=== PATIENT | male | born 2000 | race Caucasian/White ===

== ENCOUNTER 2021-08-25 20:18 | Emergency (ER) | payer SELFPAY ==
[~2021-08-25] VITALS: Ht 167 cm; Wt 72.2 kg
--- OUTSIDE RECORDS SUMMARY | 2021-08-25 20:23 | XMS REPORT | Clinical Summary ---
Author Author [facility] Organization [facility] Address Unknown Phone Unavailable Care Team Providers Care Enterprise Sales Executive Name Role Phone PCP Unavailable Allergies Comments Active Allergy Reactions Severity Noted Date Penicillins 08/01/2014 Medications End Date Status Medication Sig Dispensed Refills Start Date Active albuterol (PROVENTIL Inhale two 2 g 0 08/12 HFA;VENTOLIN HFA) 90 puffs every 6 5 mcg/actuation inhaler (six) hours as needed (Dispense with aerochamber). 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 Vital Signs Reading Time Taken Comments Vital Sign 125/57 07/19/2020 3:00 AM CDT Blood Pressure 108 07/19/2020 3:00 AM CDT Pulse 36.7 C (98 F) 07/19/2020 3:00 AM CDT Temperature 20 07/19/2020 3:00 AM CDT Respiratory Rate 97% 07/19/2020 3:00 AM CDT Oxygen Saturation - - Inhaled Oxygen Concentration 61.2 kg (135 lb) 07/19/2020 1:01 AM CDT Weight 167.6 cm (5' 6") 07/19/2020 1:01 AM CDT Height 21.79 07/19/2020 1:01 AM CDT Body Mass Index Plan of Treatment Health Maintenance Due Date Last Done Comments Td/Tdap# 2001 Tobacco Cessation 2001 Counseling # Pneumococcal Vaccine: 2007 Pediatrics (0 to 5 Years) and At-Risk Patients (6 to 64 Years) (1 of 2 - PPSV23) HPV Vaccine (1 - Male 2012 2-dose series) COVID-19 Vaccine (1) 2013 Influenza Vaccine (#1) 2021 MCV4 Vaccine Aged Out No longer eligible based on patient's age to complete this topic Results Not on filefrom Last 3 Months Insurance Type Payer Benefit Subscriber ID Effective Phone Address Plan / Dates Group MEDICAID MANAGED CARE [facility] [id number] 2017-P [address] [facility] resent [address] [place] [id number] John Biswas Personal/F Self [address] [place] (Home) [place], [place] [address] LAURO BISWAS Personal/F Father 10/17/1977 [address] [place] (Home) [place], [place] [address] Advance Directives For more information, please contact: [phone] 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
--- OUTSIDE RECORDS SUMMARY | 2021-08-25 20:23 | XMS REPORT | Clinical Summary ---
Author Author [facility] Organization [facility] Address Unknown Phone Unavailable Care Team Providers Care Animal Behaviorist Name Role Phone No, Pcp INFORMATICS DEVELOPER PP Unavailable Allergies Not on File Medications Not on file Active Problems Not on file Social History Date Tobacco Use Types Packs/Day Years Used Never Assessed Sex Assigned at Date Recorded Not on file Plan of Treatment Not on file Results Not on filefrom Last 3 Months Insurance Type Payer Benefit Subscriber ID Effective Phone Address Plan / Dates Group PA MEDICAID [place] [id number] 2020 [facility] -Present 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
--- NOTE | 2021-08-25 23:44 | ED EENT ---
History of Present Illness General Chief Complaint: Oral/Throat Problems Stated Complaint: TROUBLE/PAINFUL SWALLOWING Nursing Triage Note: PT TO ER WITH C/O SORE THROAT X1 DAY. PT REPORTS HURTS WHEN HE SWALLOWS AND HIS SALIVA FEELS THICK. PT SWABBED FOR STREP. 0/10 PAIN SCALE RATING, NO SOA. Source: patient History of Present Illness Date Seen by Provider: Aug 25, 2021 Time Seen by Provider: 23:44 Initial Comments 21 yo male presenting with complaints of sore throat for 1 day. He was having low grade fever and pain with swallowing. He denies feeling light headed or dizzy. He had no cough, shortness of breath, nausea, vomiting, diarrhea. he was concerned he has strep throat so came to be checked. He has not drank much fluid during the day. Timing/Duration: abrupt, this morning Severity: severe Location: throat Prearrival Treatment: no prearrival treatment Associated Symptoms: No change in hearing, No cough, No drooling, No ear drainage, No facial pain/swelling, No fever, No malaise, No nasal congestion/drainage; poor fluid intake, poor solids intake; No sinus infection; sore throat; No tooth pain, No voice change Allergies and Home Medications Allergies Coded Allergies: Penicillins (Verified Allergy, Severe, Anaphylaxis, 08/26/21) amoxicillin (Verified Allergy, Severe, Shortness of Breath, 08/26/21) Patient Home Medication List Home Medication List Reviewed: Yes Clindamycin HCl (Clindamycin HCl) 300 Mg Capsule, 300 MG PO Q8H Prescribed by: NATE DAVIS on 08/26/21 0027 Review of Systems Review of Systems Constitutional: chills, fever, malaise Eyes: No Symptoms Reported Ears: No Symptoms Reported Nose: no symptoms reported Mouth: no symptoms reported Throat: pain, swelling; denies discharge; painful swallowing Respiratory: No cough, No short of breath Cardiovascular: no symptoms reported; No chest pain Gastrointestinal: No diarrhea, No nausea, No vomiting Musculoskeletal: no symptoms reported Skin: No rash Neurological: Denies Headache Past Kfwmbim-Lsqxys-Ncfyqn Hx Patient Social History Tobacco Use?: Yes Smoking Status: Light Tobacco Smoker Use of E-Cig and/or Vaping dev: No Substance use?: No Alcohol Use?: No Pt feels they are or have been: No Immunizations Up To Date First/Initial COVID19 Vaccinat: JUNE 13 COVID19 Vaccine Miscellaneous Machine 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 oz. 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, alert, oriented x 3 Skin: normal color, warm/dry; No rash Progress/Results/Core Measures Results/Orders Lab Results Laboratory Tests Test 08/25/21 21:39 Range/Units Group A Streptococcus Screen NEGATIVE NEGATIVE My Orders Orders - NATE DAVIS MD Rapid Strep A Screen (08/25/21 21:27) Ed Iv/Invasive Line Start (08/25/21 23:50) Ns Iv 1000 Ml (Sodium Chloride 0.9%) (08/25/21 23:50) Dexamethasone Injection (Decadron Inje (08/25/21 23:50) Clindamycin 600 Mg/50 Ml Ivpb (Cleocin P (08/26/21 00:05) Vital Signs/I&O 08/25/21 08/26/21 22:03 00:36 Temp 38.1 Pulse 116 100 Resp 16 16 B/P (MAP) 136/86 (103) 135/76 Pulse Ox 95 99 O2 Delivery Room Air Room Air Blood Pressure Mean: 103 Progress Progress Note : Progress Note Rapid strep was obtained and was negative. However with his low-grade fever and tachycardia as well as pharyngeal erythema with exudate will cover with antibiotics for possible strep throat. Give IV fluids for hydration. Give a single dose dose of Decadron 10 mg IV for throat swelling and pain. Counseled on follow-up and return precautions. Departure Impression Primary Impression: Pharyngitis Qualified Codes: J02.9 - Acute pharyngitis, unspecified Additional Impression: Dehydration Disposition: 01 HOME, SELF-CARE Condition: Stable Departure-Patient Inst. Decision time for Depature: 00:33 Referrals: NO,LOCAL PHYSICIAN (PCP) Primary Care Physician [facility] Patient Instructions: Sore Throat, Adult ED, Dehydration, Adult ED Add. Discharge Instructions: Take the antibiotics to treat for possible strep throat infection. Take a probiotic to help replace the good bacteria you need in your gut as the antibiotic will fight the infection in throat but also kill off the bacteria in your gut that help with digestion Push fluids and drink plenty of water and electrolyte drinks. Follow up with clinic if not improving within the next 3-4 days. you could follow up with [facility] clinic by calling [phone] and let them know you need to establish a primary care provider and follow up from ER All discharge instructions reviewed with patient and/or family. Voiced understanding. Scripts Clindamycin HCl (Clindamycin HCl) 300 Mg Capsule 300 MG PO Q8H for Pharyngitis for 10 Days, #30 CAP 0 Refills Prov: NATE DAVIS MD 08/26/21 Work/School Note: Work Release Form Date Seen in the Emergency Department: Aug 25, 2021 Return to Work: Aug 27, 2021 Restrictions: Return-No Fever (24hrs) NATE DAVIS MD Aug 25, 2021 23:44
[2021-08-25] MEDS ORDERED: NS IV 1000 ML 1,000 ML IV STA (23:50)
[2021-08-25] MEDS ORDERED: PEN G BENZ (BICILLIN LA) 1.2 M UN/2 ML SYR IM STA (23:50)
[2021-08-26] MEDS ORDERED: CLINDAMYCIN 600 MG/50 ML IVPB 50 ML IV STA (00:05)
[2021-08-26] MEDS ORDERED: CLIN-144 PO (00:27)
[2021-08-26 00:36] VITALS: BP 135/76
[2021-08-27] MEDS ORDERED: PRD20T PO (21:29)
[2021-08-27] MEDS ORDERED: ALBU18HF2 INH (21:29)
== END 2021-08-26 00:37 | disposition home or self-care (01) ==
LOC: ER FS 20:20
DX: J02.9 Acute pharyngitis, unspecified (principal); E86.0 Dehydration; R00.0 Tachycardia, unspecified; F17.290 Nicotine dependence, other tobacco product, uncomplicated
CPT/HCPCS: 87430; 96372; 96374

== ENCOUNTER 2021-08-27 20:02 | Emergency (ER) | payer SELFPAY ==
[~2021-08-27] VITALS: Ht 167.7 cm; Wt 76.5 kg
[~2021-08-27 20:02] MED LIST: CLIN-144 PO
[2021-08-27] MEDS ORDERED: NS IV 1000 ML 1,000 ML IV STA (20:19)
[2021-08-27] MEDS ORDERED: NS IV 1000 ML 1,000 ML IV SCH (20:30)
[2021-08-27 20:39] LABS: HEMATOCRIT 43 % (40-54); HEMOGLOBIN 14.4 g/dL (13.3-17.7); MEAN CORPUSCULAR HEMOGLOBIN 28 pg (25-34); MEAN CORPUSCULAR VOLUME 85 fL (80-99); WHITE BLOOD COUNT 13.4 10^3/uL (4.3-11.0)
[2021-08-27 20:40] LABS: BASOPHILS % (AUTO) 0 % (0-10); EOSINOPHILS % (AUTO) 1 % (0-10); LYMPHOCYTES % (AUTO) 21 % (12-44); MEAN CORPUSCULAR HGB CONC 33 g/dL (32-36); MEAN PLATELET VOLUME 10.5 fL (9.0-12.2); MONOCYTES % (AUTO) 9 % (0-12); NEUTROPHILS % (AUTO) 68 % (42-75); PLATELET COUNT 214 10^3/uL (130-400)
--- NOTE | 2021-08-27 20:40 | ED General ---
General Chief Complaint: Cough/Cold/Flu Symptoms Stated Complaint: COUGH,SORE THROAT,SOB Nursing Triage Note: Patient states that he was here 2 days ago for a sore throat. Patient states that he has a cough and that he is short of breath when he coughs but not any other time. Patient has no other complaints. Source of Information: Patient, Old Records History of Present Illness Date Seen by Provider: Aug 27, 2021 Time Seen by Provider: 20:06 Initial Comments 21-year-old male presenting with complaints of increasing cough and shortness of breath especially today when he tried to go back to work. He had been seen here on the second for a sore throat. At that time that was his only complaint. He denies having any fever today. He feels like his throat is doing much better since treatment in the ED and continuing antibiotics at home. He is not bringing up anything when he coughs. He denies feeling lightheaded or dizzy. He states that he did use his inhaler just prior to coming to the ED. He has no nausea, vomiting, diarrhea, chest pain, headache, abdominal pain. He has had some mild nasal congestion along with his cough. He states that the sore throat is resolved. He denies any known ill contacts. Timing/Duration: 1-2 Days Severity: Moderate Modifying Factors: worse with Other (Activity makes his cough and shortness of breath worse) Associated Systoms: No Chest Pain; Cough; No Diaphoresis, No Fever/Chills, No Headaches, No Loss of Appetite, No Malaise, No Nausea/Vomiting, No Rash, No Seizure; Shortness of Air (With coughing and activity); No Syncope, No Weakness Allergies and Home Medications Allergies Coded Allergies: Penicillins (Verified Allergy, Severe, Anaphylaxis, 08/26/21) amoxicillin (Verified Allergy, Severe, Shortness of Breath, 08/26/21) Patient Home Medication List Home Medication List Reviewed: Yes Albuterol Sulfate (Ventolin Hfa) 18 Gm Hfa.aer.ad, 2 PUFF INH Q4H PRN for S HORTNESS OF BREATH Prescribed by: NATE DAVIS on 08/27/212128 Clindamycin HCl (Clindamycin HCl) 300 Mg Capsule, 300 MG PO Q8H Prescribed by: NATE DAVIS on 08/26/21 0027 Prednisone (Prednisone) 20 Mg Tab, 40 MG PO DAILY Prescribed by: NATE DAVIS on 08/27/212128 Review of Systems Review of Systems Constitutional: No chills, No fever (None since August 25 when he was seen he re) EENTM: see HPI Respiratory: see HPI Cardiovascular: No chest pain Gastrointestinal: no symptoms reported Genitourinary: no symptoms reported Musculoskeletal: no symptoms reported Skin: No rash Psychiatric/Neurological: Headache Past Ovpoqut-Svdbff-Dwpkwj Hx Patient Social History Tobacco Use?: Yes Smoking Status: Current Everyday Smoker Substance use?: No Alcohol Use?: No Pt feels they are or have been: No Immunizations Up To Date First/Initial COVID19 Vaccinat: JUNE 13 Past Medical History Respiratory: Yes Asthma Cardiac: No Neurological: No Genitourinary: No Gastrointestinal: No Musculoskeletal: No Endocrine: No HEENT: No Psychosocial: No Physical Exam Vital Signs Vital Signs - First Documented 08/27/21 20:06 Temp 36.7 Pulse 122 Resp 18 B/P (MAP) 123/78 (93) Pulse Ox 96 O2 Delivery Room Air Capillary Refill : Less Than 3 Seconds Height, Weight, BMI Height: '" Weight: lbs. oz. kg; 27.00 BMI Method: General Appearance: No Apparent Distress, WD/WN HEENT: PERRL/EOMI, Pharynx Normal Neck: Full Range of Motion, Normal Inspection, Non Tender, Supple Respiratory: Chest Non Tender, Lungs Clear, Normal Breath Sounds, No Accessory Muscle Use, No Respiratory Distress Cardiovascular: Normal Peripheral Pulses, Tachycardia Gastrointestinal: Normal Bowel Sounds, No Pulsatile Mass, Non Tender, Soft Rectal: Deferred Extremity: Normal Capillary Refill, Normal Inspection, No Pedal Edema Neurologic/Psychiatric: Alert, Oriented x3 Skin: Normal Color, Warm/Dry Focused Exam Lactate Level 08/27/21 20:23: Lactic Acid Level 1.30 Lactic Acid Level Laboratory Tests Test 08/27/21 20:23 Lactic Acid Level 1.30 MMOL/L (0.50-2.00) Progress/Results/Core Measures Suspected Sepsis SIRS Temperature: Pulse: 122 Respiratory Rate: 18 Laboratory Tests 08/27/21 20:23: White Blood Count 13.4H Blood Pressure 123 /78 Mean: 93 08/27/21 20:23: Lactic Acid Level 1.30 Laboratory Tests 08/27/21 20:23: Creatinine 1.01, INR Comment 0.9, Platelet Count 214, Total Bilirubin 0.5 Results/Orders Lab Results Laboratory Tests Test 08/27/21 20:19 08/27/21 20:23 Range/Units Influenza Type A Antigen NEGATIVE NEGATIVE Influenza Type B Antigen NEGATIVE NEGATIVE White Blood Count 13.4 H 4.3-11.0 10^3/uL Red Blood Count 5.07 4.30-5.52 10^6/uL Hemoglobin 14.4 13.3-17.7 g/dL Hematocrit 43 40-54 % Mean Corpuscular Volume 85 80-99 fL Mean Corpuscular Hemoglobin 28 25-34 pg Mean Corpuscular Hemoglobin Concent 33 32-36 g/dL Red Cell Distribution Width 12.8 10.0-14.5 % Platelet Count 214 130-400 10^3/uL Mean Platelet Volume 10.5 9.0-12.2 fL Immature Granulocyte % (Auto) 1 % Neutrophils (%) (Auto) 68 42-75 % Lymphocytes (%) (Auto) 21 12-44 % Monocytes (%) (Auto) 9 0-12 % Eosinophils (%) (Auto) 1 0-10 % Basophils (%) (Auto) 0 0-10 % Neutrophils # (Auto) 9.2 H 1.8-7.8 X 10^3 Lymphocytes # (Auto) 2.8 1.0-4.0 X 10^3 Monocytes # (Auto) 1.2 H 0.0-1.0 X 10^3 Eosinophils # (Auto) 0.1 0.0-0.3 10^3/uL Basophils # (Auto) 0.1 0.0-0.1 10^3/uL Immature Granulocyte # (Auto) 0.1 0.0-0.1 10^3/uL Prothrombin Time 12.1 L 12.2-14.7 SEC INR Comment 0.9 0.8-1.4 Activated Partial Thromboplast Time 25 24-35 SEC Sodium Level 142 135-145 MMOL/L Potassium Level 3.2 L 3.6-5.0 MMOL/L Chloride Level 104 98-107 MMOL/L Carbon Dioxide Level 27 21-32 MMOL/L Anion Gap 11 5-14 MMOL/L Blood Urea Nitrogen 17 7-18 MG/DL Creatinine 1.01 0.60-1.30 MG/DL Estimat Glomerular Filtration Rate 94 BUN/Creatinine Ratio 17 Glucose Level 147 H 70-105 MG/DL Lactic Acid Level 1.30 0.50-2.00 MMOL/L Calcium Level 8.8 8.5-10.1 MG/DL Corrected Calcium 8.6 8.5-10.1 MG/DL Total Bilirubin 0.5 0.1-1.0 MG/DL Aspartate Amino Transf (AST/SGOT) 29 5-34 U/L Alanine Aminotransferase (ALT/SGPT) 36 0-55 U/L Alkaline Phosphatase 86 40-136 U/L Troponin I < 0.30 <0.30 NG/ML C-Reactive Protein 1.44 H <0.50 MG/DL Total Protein 6.6 6.4-8.2 GM/DL Albumin 4.3 3.2-4.5 GM/DL My Orders Orders - NATE DAVIS MD Monitor-Rhythm Ecg Trace Only (08/27/21 20:16) Ed Iv/Invasive Line Start (08/27/21 20:16) Cbc With Automated Diff (08/27/21 20:16) Comprehensive Metabolic Panel (08/27/21 20:16) Crp Fs (08/27/21 20:16) Troponin I Fs (08/27/21 20:16) Protime With Inr (08/27/21 20:16) Partial Thromboplastin Time (08/27/21 20:16) Ekg Tracing (08/27/21 20:16) Ns Iv 1000 Ml (Sodium Chloride 0.9%) (08/27/21 20:30) Blood Culture (08/27/21 20:16) Covid 19 Inhouse Test (08/27/21 20:16) Influenza A & B Antigens (08/27/21 20:16) Lactic Acid Analyzer (08/27/21 20:16) Chest 1 View Ap/Pa Only (08/27/21 20:16) Ns Iv 1000 Ml (Sodium Chloride 0.9%) (08/27/21 20:19) Prednisone Tablet (Deltasone Tablet) (08/27/21 21:26) Vital Signs/I&O 08/27/21 20:06 Temp 36.7 Pulse 122 Resp 18 B/P (MAP) 123/78 (93) Pulse Ox 96 O2 Delivery Room Air Capillary Refill : Less Than 3 Seconds Blood Pressure Mean: 93 Progress Note #1: Progress Note With patient having a second ER visit for new complaints of cough and shortness of breath now will add on additional testing to see if there is something more than just the sore throat that he complained of on 25 August. He denies any fever since the second and he is afebrile on arrival to the ED. His heart rate was initially tachycardic but did improve with resting in the bed. Will obtain electrocardiogram, labs, chest x-ray, blood cultures, lactic acid, Covid swab, influenza. Give IV fluids for hydration. He received a dose of steroid with 10 mg of Decadron IV overnight on the second Progress Note #2: Time: 20:56 Progress Note CBC shows mild elevation of WBC to 13.4. Lactic acid normal at 1.3. Cardiac en zymes negative. Mild elevation of CRP. Influenza swab was negative. ECG with sinus arrhythmia but heart rate down to 88. On my review of 1 view CXR he has no definite infiltrate or acute process. Progress Note #3: Time: 21:11 Progress Note CXR read out by radiology as no acute process. Heart rate improved with treatment. with labs showing mild elevation of WBC, mild elvation of CRP, mild hypokalemia, negative influenza and strep culture negative, will discharge to home and see if patient wants to continue a steroid for a few days along with his inhaler for asthma and URI. He would be a PUI for Covid until negative results so needs to quarantine until negative results Pt was agreeable to steroid burst. Will refill albuterol inhaler as well. ECG Initial ECG Impression Date: Aug 27, 2021 Initial ECG Impression Time: 20:14 Initial ECG Rate: 88 Initial ECG Rhythm: Normal Sinus Initial ECG Comparisson: No Previous ECG Available Comment Sinus arrhythmia with a heart rate of 88 bpm. VA interval 145 ms. QT interval 333 ms with a QTc interval 403 ms. There is no acute ST elevation. There is no prior tracing available for comparison. Diagnostic Imaging Diagonstic Imaging: Xray Plain Films/CT/US/NM/MRI: chest Comments On my review of 1 view CXR he has no definite infiltrate, pneumothorax, effusion, cardiomegaly or acute process appreciated. NAME: SHAWN BISWAS Kip [facility] REC#: [id number] PT STATUS: REG ER : 2000 PHYSICIAN: NATE DAVIS MD ADMIT DATE: 08/27/21/ER FS Draft Date of Exam:08/27/21 CHEST 1 VIEW AP/PA ONLY EXAMINATION: Chest 1 view. HISTORY: Cough, short of breath. COMPARISON: None available. FINDINGS: The lungs are clear without edema or pneumonia. No pleural effusion or pneumothorax. Heart size is normal. IMPRESSION: Clear lungs. Dictated on workstation # [id number] Dict: [id number]/27/[id number] Trans: 08/27/212101 [facility] [id number] Interpreted by: NELA GARCIA MD Electronically signed by: Reviewed: Reviewed by Me Departure Impression Primary Impression: Shortness of breath Additional Impressions: Cough Person under investigation for COVID-19 Disposition: HOME, SELF-CARE Condition: Stable Departure-Patient Inst. Decision time for Depature: 21:27 Referrals: NO,LOCAL PHYSICIAN (PCP) Primary Care Physician [facility] [place] [facility] Patient Instructions: Shortness of Breath, Adult ED, Upper Respiratory Infection ED, COVID-19 Overview Add. Discharge Instructions: Finish out your antibiotic that was started for your throat. If there is any bacterial infection in your throat, lungs or respiratory tract then this would treat it. Drink plenty of water and stay well hydrated. Quarantine and isolate until you have results from Covid test tonight. If it is negative then you could return to regular activities as you tolerate, otherwise if it is positive then you need to quarantine until . Establish and follow up with clinic for continued concerns. [facility] clinic can be reached at [phone] to establish care with clinic provider. All discharge instructions reviewed with patient and/or family. Voiced understanding. Scripts Albuterol Sulfate (Ventolin Hfa) 18 Gm Hfa.aer.ad 2 PUFF INH Q4H PRN for SHORTNESS OF BREATH for 30 Days, #18 GM 0 Refills Prov: NATE DAVIS MD 08/27/21 Prednisone (Prednisone) 20 Mg Tab 40 MG PO DAILY for Asthma Exacerbation for 5 Days, #10 TAB 0 Refills Prov: NATE DAVIS MD 08/27/21 Work/School Note: Work Release Form Date Seen in the Emergency Department: Aug 27, 2021 Return to Work: Aug 31, 2021 Restrictions: Return-No Fever (24hrs) Other Restrictions Listed Below: Return Nov. 8 if negative Covid, Nov. 15 if positive Alejandraid NATE DAVIS MD Aug 27, 2021 20:40
[2021-08-27 20:41] LABS: BASOPHILS # (AUTO) 0.1 10^3/uL (0.0-0.1); EOSINOPHILS # (AUTO) 0.1 10^3/uL (0.0-0.3); LYMPHOCYTES # (AUTO) 2.8 X 10^3 (1.0-4.0); MONOCYTES # (AUTO) 1.2 X 10^3 (0.0-1.0); NEUTROPHILS # (AUTO) 9.2 X 10^3 (1.8-7.8)
[2021-08-27 20:44] LABS: INR 0.9 (0.8-1.4); PROTHROMBIN TIME PATIENT 12.1 SEC (12.2-14.7)
[2021-08-27 20:54] LABS: BILIRUBIN,TOTAL 0.5 MG/DL (0.1-1.0); BUN/CREATININE RATIO 17; CALCIUM 8.8 MG/DL (8.5-10.1); CARBON DIOXIDE 27 MMOL/L (21-32); CHLORIDE 104 MMOL/L (98-107); CREATININE SERUM 1.01 MG/DL (0.60-1.30); GFR ESTIMATED 94; GLUCOSE 147 MG/DL (70-105); POTASSIUM 3.2 MMOL/L (3.6-5.0); SODIUM 142 MMOL/L (135-145)
[2021-08-27 20:55] LABS: ALANINE AMINOTRANSFERASE 36 U/L (0-55); ALBUMIN 4.3 GM/DL (3.2-4.5); ALKALINE PHOSPHATASE 86 U/L (40-136); TOTAL PROTEIN 6.6 GM/DL (6.4-8.2)
--- NOTE | 2021-08-27 21:03 | Diagnostic Imaging Report ---
EXAMINATION: Chest 1 view. HISTORY: Cough, short of breath. COMPARISON: None available. FINDINGS: The lungs are clear without edema or pneumonia. No pleural effusion or pneumothorax. Heart size is normal. IMPRESSION: Clear lungs. Dictated by: Dictated on workstation # [id number]
[2021-08-27] MEDS ORDERED: predniSONE 20 MG TAB PO STA (21:26)
[2021-08-27] MEDS ORDERED: ALBU18HF2 INH (21:29)
[2021-08-27] MEDS ORDERED: PRD20T PO (21:29)
[2021-08-27 21:35] VITALS: BP 118/82
== END 2021-08-27 21:35 | disposition home or self-care (01) ==
LOC: EDUNIT# 20:02 → ER FS 20:04
DX: R06.02 Shortness of breath (principal); R05.9 Cough, unspecified; R00.0 Tachycardia, unspecified; J45.909 Unspecified asthma, uncomplicated; F17.200 Nicotine dependence, unspecified, uncomplicated; Z20.822 Contact with and (suspected) exposure to COVID-19
CPT/HCPCS: 36415; 71045; 80053; 83605; 84484; 85025; 85610; 85730; 86141; 87040; 87636; 87804; 93005; 93041

== ENCOUNTER 2021-10-17 15:45 | Emergency (ER) | payer SELFPAY ==
[~2021-10-17] VITALS: Ht 168 cm; Wt 74.8 kg
[~2021-10-17 15:45] MED LIST changes: +ALBU18HF2 INH; +PRD20T PO
[2021-10-17] MEDS ORDERED: KETOROLAC 30 MG/ML VIAL IVP STA (15:57)
[2021-10-17] MEDS ORDERED: NS IV 1000 ML 1,000 ML IV STA (15:57)
--- NOTE | 2021-10-17 16:00 | ED General ---
General Chief Complaint: Chest Pain Stated Complaint: ELEV BP; LT SIDED PAIN Source of Information: Patient History of Present Illness Date Seen by Provider: Oct 17, 2021 Time Seen by Provider: 15:46 Initial Comments 21-year-old male presenting with complaints of left-sided pains and has forearm and right his left knee. He also is having pain in his left chest especially when he is coughing or trying to lift something. He states this has been going on for over a week now. He was seen and tested for strep through urgent care and told that he had strep throat. He was placed on cefdinir and is still taking that for strep throat. He does not have a primary care provider. He had also been checking his blood pressure at home and felt that it was running high. Today he decided to come to the emergency department to be checked out since this has been going on for a week. On arrival to the ED he was not currently having any pain but was sick and concerned about the symptoms over the last week. He had similar complaints at the beginning of August and had a work-up through the emergency department at that time. All of his testing had come back looking okay. Timing/Duration: 1 Week Severity: Moderate Modifying Factors: worse with Movement (Exertion makes his symptoms worse) Associated Systoms: Chest Pain (Left-sided chest pains), Cough; No Diaphoresis; Fever/Chills; No Headaches, No Loss of Appetite, No Malaise, No Nausea/Vomiting, No Rash, No Seizure, No Shortness of Air, No Syncope, No Weakness Allergies and Home Medications Allergies Coded Allergies: Penicillins (Verified Allergy, Severe, Anaphylaxis, 08/26/21) amoxicillin (Verified Allergy, Severe, Shortness of Breath, 08/26/21) Patient Home Medication List Home Medication List Reviewed: Yes Albuterol Sulfate (Ventolin Hfa) 18 Gm Hfa.aer.ad, 2 PUFF INH Q4H PRN for SHORTNESS OF BREATH Prescribed by: NATE DAVIS on 08/27/212128 Clindamycin HCl (Clindamycin HCl) 300 Mg Capsule, 300 MG PO Q8H Prescribed by: NATE DAVIS on 08/26/21 0027 Prednisone (Prednisone) 20 Mg Tab, 40 MG PO DAILY Prescribed by: NATE DAVIS on 08/27/212128 Review of Systems Review of Systems Constitutional: No chills, No dizziness, No fever, No malaise EENTM: throat pain Respiratory: cough (intermittent), short of breath Cardiovascular: chest pain Gastrointestinal: No nausea, No vomiting Genitourinary: No dysuria Musculoskeletal: see HPI, muscle pain (left forearm and behind left knee at times) Skin: No rash Psychiatric/Neurological: Anxiety Past Badmxjw-Kxlajd-Youfpj Hx Patient Social History Tobacco Use?: Yes Tobacco type used: Cigarettes Smoking Status: Current Someday Smoker Use of E-Cig and/or Vaping dev: No Substance use?: No Immunizations Up To Date First/Initial COVID19 Vaccinat: JUNE 13 Past Medical History Surgeries: No Respiratory: Yes Asthma Cardiac: No Neurological: No Genitourinary: No Gastrointestinal: No Musculoskeletal: No Endocrine: No HEENT: No Psychosocial: No Physical Exam Vital Signs Vital Signs - First Documented 10/17/21 15:45 Temp 35.8 Pulse 73 Resp 16 B/P (MAP) 143/78 (99) Pulse Ox 95 O2 Delivery Room Air Capillary Refill : Height, Weight, BMI Height: '" Weight: lbs. oz. kg; 27.00 BMI Method: General Appearance: No Apparent Distress, Other (disheveled appearance) HEENT: PERRL/EOMI, Pharynx Normal; No Tonsillar Exudate Neck: Full Range of Motion, Normal Inspection, Non Tender, Supple Respiratory: Chest Non Tender, Lungs Clear, Normal Breath Sounds, No Accessory Muscle Use, No Respiratory Distress Cardiovascular: Regular Rate, Rhythm, Normal Peripheral Pulses Gastrointestinal: Normal Bowel Sounds, No Pulsatile Mass, Non Tender, Soft Extremity: Normal Capillary Refill, Normal Inspection, No Pedal Edema Neurologic/Psychiatric: Alert, Oriented x3 Skin: Normal Color, Warm/Dry Progress/Results/Core Measures Suspected Sepsis SIRS Temperature: Pulse: Respiratory Rate: Laboratory Tests 10/17/21 16:02: White Blood Count 6.3 Blood Pressure / Mean: Laboratory Tests 10/17/21 16:02: Creatinine 1.01, INR Comment 1.0, Platelet Count 225, Total Bilirubin 0.8 Results/Orders Lab Results Laboratory Tests Test 10/17/21 16:02 Range/Units White Blood Count 6.3 4.3-11.0 10^3/uL Red Blood Count 5.62 H 4.30-5.52 10^6/uL Hemoglobin 15.7 13.3-17.7 g/dL Hematocrit 46 40-54 % Mean Corpuscular Volume 82 80-99 fL Mean Corpuscular Hemoglobin 28 25-34 pg Mean Corpuscular Hemoglobin Concent 34 32-36 g/dL Red Cell Distribution Width 12.5 10.0-14.5 % Platelet Count 225 130-400 10^3/uL Mean Platelet Volume 10.1 9.0-12.2 fL Immature Granulocyte % (Auto) 0 % Neutrophils (%) (Auto) 48 42-75 % Lymphocytes (%) (Auto) 45 H 12-44 % Monocytes (%) (Auto) 7 0-12 % Eosinophils (%) (Auto) 1 0-10 % Basophils (%) (Auto) 1 0-10 % Neutrophils # (Auto) 3.0 1.8-7.8 X 10^3 Lymphocytes # (Auto) 2.8 1.0-4.0 X 10^3 Monocytes # (Auto) 0.4 0.0-1.0 X 10^3 Eosinophils # (Auto) 0.0 0.0-0.3 10^3/uL Basophils # (Auto) 0.0 0.0-0.1 10^3/uL Immature Granulocyte # (Auto) 0.0 0.0-0.1 10^3/uL Prothrombin Time 13.2 12.2-14.7 SEC INR Comment 1.0 0.8-1.4 Activated Partial Thromboplast Time 32 24-35 SEC Sodium Level 139 135-145 MMOL/L Potassium Level 3.8 3.6-5.0 MMOL/L Chloride Level 101 98-107 MMOL/L Carbon Dioxide Level 26 21-32 MMOL/L Anion Gap 12 5-14 MMOL/L Blood Urea Nitrogen 11 7-18 MG/DL Creatinine 1.01 0.60-1.30 MG/DL Estimat Glomerular Filtration Rate 94 BUN/Creatinine Ratio 11 Glucose Level 90 70-105 MG/DL Calcium Level 9.1 8.5-10.1 MG/DL Corrected Calcium 8.5-10.1 MG/DL Magnesium Level 1.9 1.6-2.4 MG/DL Total Bilirubin 0.8 0.1-1.0 MG/DL Aspartate Amino Transf (AST/SGOT) 21 5-34 U/L Alanine Aminotransferase (ALT/SGPT) 28 0-55 U/L Alkaline Phosphatase 89 40-136 U/L Troponin I < 0.30 <0.30 NG/ML Total Protein 7.6 6.4-8.2 GM/DL Albumin 4.7 H 3.2-4.5 GM/DL My Orders Orders - NATE DAVIS MD Cbc With Automated Diff (10/17/21 15:57) Magnesium (10/17/21 15:57) Chest 1 View Ap/Pa Only (10/17/21 15:57) Ekg Tracing (10/17/21 15:57) Comprehensive Metabolic Panel (10/17/21 15:57) Protime With Inr (10/17/21 15:57) Partial Thromboplastin Time (10/17/21 15:57) Monitor-Rhythm Ecg Trace Only (10/17/21 15:57) Ed Iv/Invasive Line Start (10/17/21 15:57) Troponin I Fs (10/17/21 15:57) Ns Iv 1000 Ml (Sodium Chloride 0.9%) (10/17/21 15:57) Ketorolac Injection (Toradol Injection) (10/17/21 15:57) Vital Signs/I&O 10/17/21 10/17/21 15:45 16:42 Temp 35.8 35.8 Pulse 73 63 Resp 16 12 B/P (MAP) 143/78 (99) 109/60 Pulse Ox 95 98 O2 Delivery Room Air Room Air Capillary Refill : Progress Note #1: Progress Note His vital signs and exam all appear benign. Will check basic labs and electrocardiogram. Evaluate for possible electrolyte imbalance to be causing his pains. Since he has been sick during the time that this was occurring he certainly could be dehydrated related to the infection. We will give IV fluids for hydration. Toradol for inflammation and pain. Progress Note #2: Progress Note Labs do not show any acute significant abnormality. His cardiac enzymes are negative. His chest x-ray is clear and does not show any acute. It appears stable from August 27. His electrocardiogram shows sinus rhythm and again is stable from Aug 27. Reassured pt and advised to follow up and establish care with clinic for continued concerns ECG Initial ECG Impression Date: Oct 17, 2021 Initial ECG Impression Time: 15:43 Initial ECG Rate: 59 Initial ECG Rhythm: Normal Sinus Initial ECG Comparisson: No Previous ECG Available Comment Normal sinus rhythm with heart rate of 59 bpm. W[place] interval [address] elevation. No prior tracing available for comparison. QT interval 375 ms with a QTc interval 372 ms. Diagnostic Imaging Diagonstic Imaging: Xray Plain Films/CT/US/NM/MRI: chest Comments NAME: [facility] REC#: [id number] PT STATUS: REG ER : 2001 PHYSICIAN: NATE DAVIS MD ADMIT DATE: 10/17/21/ER FS Signed Date of Exam:10/17/21 CHEST 1 VIEW AP/PA ONLY INDICATION: Chest pain. COMPARISON: 08/27/2021. TECHNIQUE: Single radiograph of the chest dated October 17, 2021. FINDINGS: The cardiac silhouette is within normal limits in size. No significant pulmonary vascular congestion. The lungs are clear. No pleural effusion. No pneumothorax. No acute osseous abnormality. IMPRESSION: Stable examination without acute cardiopulmonary abnormality. Dictated by: Dictated on workstation # [id number] Dict: 10/17/21 1612 Trans: 10/17/21 161 [facility] [id number] Interpreted by: CRISELDA CLAROS MD Electronically signed by: CRISELDA CLAROS MD 10/17/219 Reviewed: Reviewed by Ma Departure Impression Primary Impression: Myalgia Additional Impression: Dehydration Disposition: 01 HOME, SELF-CARE Condition: Stable Departure-Patient Inst. Decision time for Depature: 16:38 Referrals: NO,LOCAL PHYSICIAN (PCP) Primary Care Physician [facility] [place] Instructions: Dehydration, Adult ED, Muscle and Bone Pain (DC) Add. Discharge Instructions: Stay well hydrated and get plenty of rest Follow up with clinic and get established with primary care provider for continued care and if having continued concerns can follow up with clinic. For the [facility] clinic you could call [phone] to get an appointment to get established with a provider. Take Ibuprofen 600 mg every 6 hours as needed for pain/inflammation. Finish your course of antibiotics for your throat. All discharge instructions reviewed with patient and/or family. Voiced understanding. NATE DAVIS MD Oct 17, 2021 16:00
[2021-10-17 16:08] LABS: BASOPHILS % (AUTO) 1 % (0-10); EOSINOPHILS % (AUTO) 1 % (0-10); HEMATOCRIT 46 % (40-54); HEMOGLOBIN 15.7 g/dL (13.3-17.7); LYMPHOCYTES # (AUTO) 2.8 X 10^3 (1.0-4.0); LYMPHOCYTES % (AUTO) 45 % (12-44); MEAN CORPUSCULAR HEMOGLOBIN 28 pg (25-34); MEAN CORPUSCULAR HGB CONC 34 g/dL (32-36); MEAN CORPUSCULAR VOLUME 82 fL (80-99); MEAN PLATELET VOLUME 10.1 fL (9.0-12.2); MONOCYTES # (AUTO) 0.4 X 10^3 (0.0-1.0); MONOCYTES % (AUTO) 7 % (0-12); NEUTROPHILS % (AUTO) 48 % (42-75); PLATELET COUNT 225 10^3/uL (130-400); WHITE BLOOD COUNT 6.3 10^3/uL (4.3-11.0)
--- NOTE | 2021-10-17 16:18 | Diagnostic Imaging Report ---
INDICATION: Chest pain. COMPARISON: 08/27/2021. TECHNIQUE: Single radiograph of the chest dated October 17, 2021. FINDINGS: The cardiac silhouette is within normal limits in size. No significant pulmonary vascular congestion. The lungs are clear. No pleural effusion. No pneumothorax. No acute osseous abnormality. IMPRESSION: Stable examination without acute cardiopulmonary abnormality. Dictated by: Dictated on workstation # [id number]
[2021-10-17 16:20] LABS: PROTHROMBIN TIME PATIENT 13.2 SEC (12.2-14.7)
[2021-10-17 16:28] LABS: ALANINE AMINOTRANSFERASE 28 U/L (0-55); ALBUMIN 4.7 GM/DL (3.2-4.5); ALKALINE PHOSPHATASE 89 U/L (40-136); BILIRUBIN,TOTAL 0.8 MG/DL (0.1-1.0); BUN/CREATININE RATIO 11; CALCIUM 9.1 MG/DL (8.5-10.1); CARBON DIOXIDE 26 MMOL/L (21-32); CHLORIDE 101 MMOL/L (98-107); CREATININE SERUM 1.01 MG/DL (0.60-1.30); GFR ESTIMATED 94; GLUCOSE 90 MG/DL (70-105); MAGNESIUM 1.9 MG/DL (1.6-2.4); POTASSIUM 3.8 MMOL/L (3.6-5.0); SODIUM 139 MMOL/L (135-145); TOTAL PROTEIN 7.6 GM/DL (6.4-8.2)
[2021-10-17 16:42] VITALS: BP 109/60
== END 2021-10-17 16:42 | disposition home or self-care (01) ==
LOC: ER FS 15:46
DX: E86.0 Dehydration (principal); F17.210 Nicotine dependence, cigarettes, uncomplicated; Z88.0 Allergy status to penicillin; Z88.1 Allergy status to other antibiotic agents
CPT/HCPCS: 36415; 71045; 80053; 83735; 84484; 85025; 85610; 85730; 93005; 93041

== ENCOUNTER 2022-02-21 23:47 | Emergency (ER) | payer SELFPAY ==
[~2022-02-21] VITALS: Ht 165 cm; Wt 68.6 kg
--- NOTE | 2022-02-21 23:56 | ED General ---
General Stated Complaint: SPASMS/LEFT SIDE OF CHEST Source of Information: Patient Exam Limitations: No Limitations History of Present Illness Date Seen by Provider: February 21, 2022 Time Seen by Provider: 23:55 Initial Comments 21-year-old male with no pertinent past medical history coming in due to roughly 4 days of intermittent chest discomfort radiating to the left arm. Not currently having any chest pain. Is having some left shoulder discomfort similar to prior. Denies any trauma. Has not tried any medicines for this as of yet. Has never had the symptoms before. Denies any prior history of DVT or PE, no recent surgery, no hemoptysis, does not take any hormone therapy. He is otherwise denying any other acute complaints. Allergies and Home Medications Allergies Coded Allergies: Penicillins (Verified Allergy, Severe, Anaphylaxis, 08/26/21) amoxicillin (Verified Allergy, Severe, Shortness of Breath, 08/26/21) Patient Home Medication List Home Medication List Reviewed: Yes Albuterol Sulfate (Ventolin Hfa) 18 Gm Hfa.aer.ad, 2 PUFF INH Q4H PRN for SHORTNESS OF BREATH Prescribed by: NATE DAVIS on 08/27/212128 Clindamycin HCl (Clindamycin HCl) 300 Mg Capsule, 300 MG PO Q8H Prescribed by: NATE DAVIS on 08/26/21 0027 Prednisone (Prednisone) 20 Mg Tab, 40 MG PO DAILY Prescribed by: NATE DAVIS on 08/27/212128 Review of Systems Review of Systems Constitutional: No chills, No fever EENTM: No blurred vision Respiratory: no symptoms reported Cardiovascular: chest pain Gastrointestinal: no symptoms reported Genitourinary: no symptoms reported Musculoskeletal: no symptoms reported Skin: no symptoms reported Psychiatric/Neurological: No Symptoms Reported Hematologic/Lymphatic: No Symptoms Reported Immunological/Allergic: no symptoms reported All Other Systems Reviewed Negative Unless Noted: Yes Past Nopziae-Uscpnh-Bbymys Hx Patient Social History Substance use?: No Immunizations Up To Date First/Initial COVID19 Vaccinat: July 2021 Past Medical History Surgery/Hospitalization HX: Asthma; Tonsilectomy Surgeries: No Respiratory: Yes Asthma Cardiac: No Neurological: No Genitourinary: No Gastrointestinal: No Musculoskeletal: No Endocrine: No HEENT: No Psychosocial: No Physical Exam Vital Signs Capillary Refill : Height, Weight, BMI Height: '" Weight: lbs. oz. kg; 26.00 BMI Method: General Appearance: No Apparent Distress, WD/WN Eyes: Bilateral Eye Normal Inspection HEENT: PERRL/EOMI, Normal ENT Inspection, Pharynx Normal Neck: Full Range of Motion, Normal Inspection, Non Tender, Supple Respiratory: Chest Non Tender, Lungs Clear, Normal Breath Sounds, No Accessory Muscle Use, No Respiratory Distress Cardiovascular: Regular Rate, Rhythm, No Edema, Normal Peripheral Pulses Gastrointestinal: Normal Bowel Sounds, Non Tender, Soft; No Distended, No Guarding Back: Normal Inspection, No CVA Tenderness, No Vertebral Tenderness Extremity: Normal Capillary Refill, Normal Inspection, Normal Range of Motion, Non Tender, No Calf Tenderness, No Pedal Edema Neurologic/Psychiatric: Alert, No Motor/Sensory Deficits, Normal Mood/Affect Skin: Normal Color, Warm/Dry Lymphatic: No Adenopathy Progress/Results/Core Measures Suspected Sepsis SIRS Temperature: Pulse: Respiratory Rate: Blood Pressure / Mean: Results/Orders My Orders Orders - APARNA DUMONT MD Ekg Tracing (02/21/22 23:57) Chest 1 View Ap/Pa Only (02/21/22 23:57) Ibuprofen Tablet (Motrin Tablet) (02/22/22 00:15) Medications Given in ED Current Medications Medications Dose Ordered Sig/Arun Route Start Time Stop Time Status Last Admin Dose Admin Ibuprofen 600 mg ONCE ONCE PO 02/22/22 00:15 02/22/22 00:16 DC 02/22/22 00:16 600 MG Vital Signs/I&O Capillary Refill : Progress Note : Progress Note 21-year-old male with above history coming in due to chest discomfort radiating to the left arm. ABCs were intact and vitals were stable on presentation. Physical exam reassuring with no focal abnormalities. EKG without any acute ischemic changes. He is low risk for PE and is PERC negative. I did a [id number] ultrasound showing normal lung sliding and no pericardial effusion. Given ibuprofen for discomfort. Chest x-ray without any acute abnormalities on my interpretation. I believe he is stable for discharge with outpatient follow-up. He was sent home with strict return precautions ECG Initial ECG Impression Date: February 22, 2022 Initial ECG Impression Time: 00:21 Initial ECG Rate: 65 Initial ECG Rhythm: Normal Sinus Comment Narrow QRS, normal axis, no significant ST changes or T wave abnormalities Diagnostic Imaging Diagonstic Imaging: Xray Plain Films/CT/US/NM/MRI: chest Comments No acute changes and chest x-ray including normal cardiac silhouette, no focal opacities, no pneumothorax on my interpretation Departure Impression Primary Impression: Chest discomfort Disposition: 01 HOME, SELF-CARE Condition: Stable Departure-Patient Inst. Decision time for Depature: 00:30 Referrals: NO,LOCAL PHYSICIAN (PCP/Family) Primary Care Physician Patient Instructions: Chest Pain Add. Discharge Instructions: It does not appear like you are having a heart attack or any significant deadly issues such as a stroke. This is likely muscular related. Take ibuprofen and/or Tylenol as needed for pain. Follow-up with your regular doctor if things are not improving. Work/School Note: School/Childcare Release, Date Seen in the Emergency Department: February 22, 2022 Time Dismissed from Emergency Department: 00:15 Return to School: February 23, 2022 Restrictions: No Restrictions Work Release Form Date Seen in the Emergency Department: February 22, 2022 Return to Work: February 23, 2022 Restrictions: No Restrictions APARNA DUMONT MD February 21, 2022 23:56
[2022-02-22] VITALS: BP 134/80
[2022-02-22] MEDS ORDERED: IBUPROFEN 600 MG (MOTRIN) TAB PO ONE (00:15)
--- NOTE | 2022-02-22 07:00 | Diagnostic Imaging Report ---
CLINICAL INDICATIONS: Patient with chest pain. EXAM: Portable chest x-ray upright view. COMPARISON: Chest x-ray dated 10/17/2021. FINDINGS: Lungs/pleura: Lungs are clear. There is no pneumothorax. There is no pleural effusion. Mediastinum: Unremarkable. Pulmonary vasculature: Unremarkable. Heart: Unremarkable. Bones/extrathoracic soft tissue: Unremarkable. IMPRESSION: There is no radiographic evidence of acute cardiopulmonary process. Dictated by: Dictated on workstation # [id number]
== END 2022-02-22 00:41 | disposition home or self-care (01) ==
LOC: EDUNIT# 23:47 → ER FS 23:53
DX: R07.89 Other chest pain (principal)
CPT/HCPCS: 71046; 93005